=== PATIENT | female | born 1985 | race American Indian/Alaskan Native ===

== ENCOUNTER 2016-06-20 07:26 | Emergency (ER) | payer SELFPAY ==
[2016-06-20 07:40] VITALS: BP 129/84
[2016-06-20] MEDS ORDERED: TORADOL IM ONE (09:17)
--- NOTE | 2016-06-20 09:19 | Emergency Department Report ---
ED Back Pain/Injury HPI - General Chief Complaint: Fall Stated Complaint: FALL/LEFT SIDE HIP/BACK/SHOULDER PAIN Time Seen by Provider: 06/20/16 09:14 Source: patient Limitations: No Limitations - History of Present Illness Initial Comments: 30-year-old female comes in complaint of left hip left shoulder and lower back pain. Patient reports that [place] Monday [place] Now she is having pain and stiffness. Patient reports that she is able to move all of her extremities and was able to come here to the hospital but pain is not subsiding. Patient reports that she's taken ibuprofen 800 mg 2 tablets since this incident happened as well as taking Goody powders. She denies any loss of bladder control no fecal incontinence. Denies hitting her head no nausea no vomiting. LMP 05/25/2016 denies any chances of being . - Related Data Previous Rx's Medication Instructions Recorded Last Taken Type Ibuprofen [Motrin 800 MG tab] 800 mg PO Q8HR PRN #45 tablet 06/20/16 Unknown Rx methOCARBAMOL [Robaxin TAB] 500 mg PO BID #30 tab 06/20/16 Unknown Rx Allergies Allergy/AdvReac Type Severity Reaction Status Date / Time No Known Allergies Allergy Unverified 06/20/16 08:20 ED Review of Systems ROS: Stated complaint: FALL/LEFT SIDE HIP/BACK/SHOULDER PAIN Other details as noted in HPI Constitutional: no symptoms reported Musculoskeletal: back pain, arthralgia (left shoulder left hip) Neurological: denies: headache, weakness, numbness, paresthesias, abnormal gait ED Past Medical Hx - Past Medical History Previous Medical History?: No - Surgical History Past Surgical History?: No - Social History Smoking Status: Current Every Day Smoker Substance Use Type: None - Medications Home Medications: Home Medications Medication Instructions Recorded Confirmed Last Taken Type Ibuprofen [Motrin 800 MG tab] 800 mg PO Q8HR PRN #45 tablet 06/20/16 Unknown Rx methOCARBAMOL [Robaxin TAB] 500 mg PO BID #30 tab 06/20/16 Unknown Rx ED Physical Exam - General Limitations: No Limitations General appearance: alert, in no apparent distress - Head Head exam: Present: atraumatic, normocephalic - Respiratory Respiratory exam: Present: normal lung sounds bilaterally - Expanded Upper Extremity Exam Left General: Present: normal inspection Shoulder Exam: Present: normal inspection, tenderness. Absent: swelling, abrasion, laceration, deformity - Expanded Lower Extremity Exam Left Hip exam: Present: normal inspection, full ROM, tenderness, ecchymosis. Absent : swelling, abrasion, laceration - Back Exam Back exam: Present: tenderness (lower back), muscle spasm (lower back). Absent : CVA tenderness (R), CVA tenderness (L) - Neurological Exam Neurological exam: Present: alert, oriented X3 ED Course Vital Signs 06/20/16 06/20/16 07:34 09:29 Temperature 98.1 F Pulse Rate 68 Respiratory 16 20 Rate Blood Pressure 129/84 O2 Sat by Pulse 100 Oximetry - Reevaluation(s) Reevaluation #1: 06/20/16 10:55 Is was given Toradol injection 60 mg IM. Follow-up with patient she states that she feels much better. We would discharge patient on appropriate medications ED Medical Decision Making - Medical Decision Making She has been evaluated by this provider in fast track. Based on history and physical examination there is no imaging is required at this time. Discussed with patient that we'll give her a Toradol injection to help her with the pain. We would discuss charged patient on a muscle relaxant such as Robaxin and ibuprofen 800 mg 3 times a day. Patient verbalized understanding. She does request for light duty for a few days. Critical care attestation.: If time is entered above; I have spent that time in minutes in the direct care of this critically ill patient, excluding procedure time. ED Disposition Clinical Impression: Back pain Qualifiers: Back pain location: low back pain Chronicity: acute Back pain laterality: left Sciatica presence: unspecified whether sciatica present Qualified Code(s): M54.5 - Low back pain Disposition: DISCHARGED TO HOME OR SELFCARE Is pt being admited?: No Does the pt Need Aspirin: No Condition: Stable Instructions: Fall Prevention (ED), Back Pain (ED), Shoulder Sprain (ED), Arthralgia (ED) Additional Instructions: Take medication as prescribed follow with the primary care provider. If symptoms get worse or does not improve return to the emergency room. Prescriptions: Ibuprofen [Motrin 800 MG tab] 800 mg PO Q8HR PRN #45 tablet PRN Reason: Pain methOCARBAMOL [Robaxin TAB] 500 mg PO BID #30 tab Referrals: PRIMARY CARE, [Primary Care Provider] - 3-5 Days HELGA CAI MD [Staff Physician] - 3-5 Days Forms: Work/School Release Form(ED)
== END 2016-06-20 11:03 | disposition home or self-care (01) ==
LOC: ED 07:26
DX: M54.5 Low back pain (principal); F17.200 Nicotine dependence, unspecified, uncomplicated; W01.0XXA Fall on same level from slipping, tripping and stumbling without subsequent striking against object, initial encounter; Y93.9 Activity, unspecified; Y92.9 Unspecified place or not applicable; Y99.9 Unspecified external cause status
CPT/HCPCS: 96372; 99282; J1885

== ENCOUNTER 2016-12-01 10:10 | Emergency (ER) | payer SELFPAY ==
[2016-12-01 11:42] LABS: Basophils % (Auto) 0.3 % (0.0-1.8); Eosinophils % (Auto) 1.8 % (0.0-4.3); Hematocrit 36.4 % (30.3-42.9); Hemoglobin 12.3 gm/dl (10.1-14.3); Mean Corpuscular HGB Conc 34 % (30-34); Mean Corpuscular Hemoglobin 33 pg (28-32); Mean Corpuscular Volume 99 fl (79-97); Platelet Count 251 K/mm3 (140-440); Red Blood Count 3.68 M/mm3 (3.65-5.03); Red Cell Distribution Width 11.8 % (13.2-15.2); White Blood Count 6.2 K/mm3 (4.5-11.0)
[2016-12-01 11:43] LABS: Bacteria,Urine 1+ /HPF (Negative); Bilirubin,Urine NEG (Negative); Blood,Urine LG (Negative); Ketones,Urine NEG (Negative); Leukocyte Esterase,Urine TR (Negative); Mucus,Urine FEW /HPF; Nitrite,Urine NEG (Negative); Protein,Urine <15 mg/dL mg/dL (Negative)
--- NOTE | 2016-12-01 22:34 | Emergency Department Report ---
HPI - General Chief Complaint: Vaginal Bleeding Time Seen by Provider: 12/01/16 21:40 - HPI HPI: Room 7 The patient is a 31-year-old female presenting with a chief complaint of vaginal bleeding the patient states her last cycle her 10/27-. The patient states for the past 5 days she has had intermittent suprapubic and left lower quadrant cramping. The patient states 4 days ago she developed vaginal spotting for several hours and then resolved. The patient states yesterday the bleeding return of dark blood. The patient states she took a test yesterday and today and they were both positive. The patient states she currently feels fine gives her pain a score of 2/10 Location: Suprapubic, left lower quadrant Duration: Intermittent 5 days Quality: Cramping Severity: 2/10 Modifying factors: [see above] Context: [see above] Mode of transportation: [not driving] ED Past Medical Hx - Past Medical History Previous Medical History?: No - Surgical History Past Surgical History?: No - Family History Family history: no significant - Social History Smoking Status: Current Every Day Smoker (1/2 pack per day) Substance Use Type: None - Medications Home Medications: Home Medications Medication Instructions Recorded Confirmed Last Taken Type No Known Home Medications [No 12/01/16 12/01/16 Unknown History Reported Home Medications] ED Review of Systems ROS: Stated complaint: PREG/ABD PAIN/BLEEDING Other details as noted in HPI Comment: All other systems reviewed and negative Constitutional: denies: chills, fever Eyes: denies: eye pain, eye discharge, vision change ENT: denies: ear pain, throat pain Respiratory: denies: cough, shortness of breath, wheezing Cardiovascular: as per HPI Endocrine: no symptoms reported Gastrointestinal: abdominal pain Genitourinary: abnormal menses Musculoskeletal: denies: back pain, joint swelling, arthralgia Skin: denies: rash, lesions Neurological: denies: headache, weakness, paresthesias Psychiatric: denies: anxiety, depression Hematological/Lymphatic: denies: easy bleeding, easy bruising Physical Exam - Physical Exam Vital Signs: Vital Signs 12/01/16 10:35 Temperature 98.4 F Pulse Rate 69 Respiratory 18 Rate Blood Pressure 116/78 O2 Sat by Pulse 100 Oximetry Physical Exam: GENERAL: The patient is well-developed well-nourished female sitting on stretcher not appearing to be in acute distress. [] HEENT: Normocephalic. Atraumatic. Extraocular motions are intact. Patient has moist mucous membranes. NECK: Supple. Trachea midline CHEST/LUNGS: Clear to auscultation. There is no respiratory distress noted. HEART/CARDIOVASCULAR: Regular. There is no tachycardia. There is no gallop rub or murmur. ABDOMEN: Abdomen is soft, with discomfort to palpation in the suprapubic and left lower quadrant. Patient has normal bowel sounds. There is no abdominal distention. SKIN: There is no rash. There is no edema. There is no diaphoresis. NEURO: The patient is awake, alert, and oriented. The patient is cooperative. The patient has normal speech MUSCULOSKELETAL: There is no evidence of acute injury. ED Course Vital Signs 12/01/16 10:35 Temperature 98.4 F Pulse Rate 69 Respiratory 18 Rate Blood Pressure 116/78 O2 Sat by Pulse 100 Oximetry ED Medical Decision Making - Lab Data Result diagrams: 12/01/16 10:56 Laboratory Tests 12/01/16 12/01/16 12/01/16 10:35 10:56 10:56 WBC 6.2 RBC 3.68 Hgb 12.3 Hct 36.4 MCV 99 H MCH 33 H MCHC 34 RDW 11.8 L Plt Count 251 Lymph % (Auto) 31.5 [place] % (Auto) 8.9 H Eos % (Auto) 1.8 Baso % (Auto) 0.3 Lymph # 1.9 [place] # 0.6 Eos # 0.1 Baso # 0.0 Seg Neutrophils % 57.5 Seg Neutrophils # 3.5 Total Creatine Kinase 69 HCG, Quant 127.1 H Urine Color Urine Turbidity Urine pH Ur Specific [place] Urine Protein Urine Glucose (UA) Urine Ketones Urine Blood Urine Nitrite Urine Bilirubin Urine Urobilinogen Ur Leukocyte Esterase Urine WBC (Auto) Urine RBC (Auto) U Epithel Cells (Auto) Urine Bacteria (Auto) Urine Mucus Blood Type Antibody Screen TEZ Antibody Screen 12/01/16 12/01/16 10:59 11:11 WBC RBC Hgb Hct MCV MCH MCHC RDW Plt Count Lymph % (Auto) [place] % (Auto) Eos % (Auto) Baso % (Auto) Lymph # [place] # Eos # Baso # Seg Neutrophils % Seg Neutrophils # Total Creatine Kinase HCG, Quant Urine Color Yellow Urine Turbidity Clear Urine pH 6.0 Ur Specific [place] 1.019 Urine Protein <15 mg/dl Urine Glucose (UA) Neg Urine Ketones Neg Urine Blood Lg Urine Nitrite Neg Urine Bilirubin Neg Urine Urobilinogen 2.0 Ur Leukocyte Esterase Tr Urine WBC (Auto) 6.0 Urine RBC (Auto) 5.0 U Epithel Cells (Auto) 3.0 Urine Bacteria (Auto) 1+ Urine Mucus Few Blood Type O POSITIVE Antibody Screen TNR TEZ Antibody Screen Negative - Radiology Data Radiology results: report reviewed (pelvic ultrasound), image reviewed (pelvic ultrasound) Pelvic ultrasound (read by radiologist)-unremarkable exam - Medical Decision Making I discussed with patient and friend/family at bedside my concern for ectopic and that it is not ruled out in this instance. I explained to the patient needs to return to the hospital 48 hours to have her serum hCG level rechecked and potentially a repeat pelvic ultrasound. Patient verbalized understanding. - Differential Diagnosis ectopic , spontaneous , threatened Critical care attestation.: If time is entered above; I have spent that time in minutes in the direct care of this critically ill patient, excluding procedure time. ED Disposition Clinical Impression: Threatened Disposition: DC-01 TO HOME OR SELFCARE Is pt being admited?: No Does the pt Need Aspirin: No Condition: Stable Instructions: Ectopic (ED), Threatened Miscarriage (ED) Additional Instructions: Your serum hCG level today is 127.1 mIu/mL. You should return to the emergency department in 48 hours to have this number rechecked. Return to the emergency department immediately should you develop worsening symptoms, fever, inability to tolerate food or liquid or any other concerns. Referrals: CHINMAY FLORIAN MD [Staff Physician] - 12/03/16 (Dr. Florian is an [employer]. Please follow up with him for further evaluation) Time of Disposition: 23:03
--- NOTE | 2016-12-01 22:45 | Ultrasound Report ---
FINAL REPORT PROCEDURE: US OB TRANSVAGINAL TECHNIQUE: Real-time transvaginal sonography in multiple planes of the pelvis was performed with image documentation. This examination was performed without Doppler. Vascular abnormalities, including ovarian torsion, will not be detectable without Doppler evaluation. CPT 33802 HISTORY: preg, vag bleed COMPARISON: No prior studies are available for comparison. FINDINGS: UTERUS Size: 8.4 x 3.9 x 5.2 cm. Endometrial thickness: 10 mm. Orientation: anteverted. Cervix: Normal. Fibroids/masses: None. RIGHT Ovary: 3.5 x 2.5 x 1.9 cm. Appearance: Normal. LEFT Ovary: 2.8 x 2.0 x 1.6 cm. Appearance: Normal. Pelvic fluid: None. Other: None. IMPRESSION: Unremarkable study.
--- NOTE | 2016-12-01 22:50 | Ultrasound Report ---
FINAL REPORT PROCEDURE: US OB \T\lt; = 14 WEEKS FETUS TECHNIQUE: Real-time transabdominal sonography in multiple planes of pelvis was performed with image documentation. This examination was performed without Doppler. Vascular abnormalities, including ovarian torsion, will not be detectable without Doppler evaluation. CPT 07258 HISTORY: preg, vag bleed COMPARISON: No prior studies are available for comparison. FINDINGS: UTERUS Size: 8.4 x 3.9 x 5.2 cm. Endometrial thickness: 10 mm. Orientation: anteverted. Cervix: Normal. Fibroids/masses: None. RIGHT Ovary: 3.5 x 2.5 x 1.9 cm. Appearance: Normal. LEFT Ovary: 2.8 x 2.0 x 1.6 cm. Appearance: Normal. Pelvic fluid: None. Other: None. IMPRESSION: Unremarkable study
[2016-12-01 23:33] VITALS: BP 129/79
== END 2016-12-01 23:33 | disposition home or self-care (01) ==
LOC: ED 10:10
DX: O20.0 Threatened abortion (principal); F17.200 Nicotine dependence, unspecified, uncomplicated
CPT/HCPCS: 36415; 76801; 76817; 81001; 82550; 84702; 85025; 86850; 86900; 86901

== ENCOUNTER 2016-12-04 11:29 | Emergency (ER) | payer SELFPAY ==
[2016-12-04 11:41] VITALS: BP 128/92
--- NOTE | 2016-12-04 14:33 | Emergency Department Report ---
ED General Adult HPI - General Chief complaint: Urogenital-Female Stated complaint: FOLLOW UP CARE Time Seen by Provider: 12/04/16 14:16 Source: patient, RN notes reviewed, old records reviewed (blood type RH + ) Mode of arrival: Ambulatory Limitations: No Limitations - History of Present Illness Initial comments: PT states she is here for repeat lab work. PT states on 11-29-16 she had an irregular period. PT states it compelled her to be seen in the ED on 12-01-16. PT states she was found to have positive blood test and she was told to return today for repeat labs. PT states she is still having vaginal bleeding, states it is like a normal period. 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 PT states 10 years ago, she was told that she has a thin uterus and she would have trouble getting again. PT denies pain. MD Complaint: follow up -: Gradual, week(s) (less than one week ) Severity scale (0 -10): 0 Consistency: constant Improves with: none Worsens with: none Associated Symptoms: denies other symptoms. denies: fever/chills, nausea/ vomiting, shortness of breath - Related Data Home Medications Medication Instructions Recorded Confirmed Last Taken No Known Home Medications [No 12/01/16 12/01/16 Unknown Reported Home Medications] Allergies Allergy/AdvReac Type Severity Reaction Status Date / Time No Known Allergies Allergy Verified 12/01/16 10:35 ED Review of Systems ROS: Stated complaint: FOLLOW UP CARE Other details as noted in HPI Comment: All other systems reviewed and negative Constitutional: denies: chills, fever Respiratory: denies: shortness of breath Cardiovascular: denies: syncope Gastrointestinal: denies: abdominal pain, nausea, vomiting Genitourinary: abnormal menses Neurological: denies: weakness ED Past Medical Hx - Past Medical History Previous Medical History?: No - Surgical History Past Surgical History?: Yes Additional Surgical History: difficulty with , I and D - Social History Smoking Status: Current Every Day Smoker Substance Use Type: None - Medications Home Medications: Home Medications Medication Instructions Recorded Confirmed Last Taken Type No Known Home Medications [No 12/01/16 12/01/16 Unknown History Reported Home Medications] ED Physical Exam - General Limitations: No Limitations General appearance: alert, in no apparent distress, other (pt sitting up, eating , no acute distress noted ) - Head Head exam: Present: atraumatic, normocephalic, normal inspection - Eye Eye exam: Present: normal appearance. Absent: conjunctival injection - ENT ENT exam: Present: normal exam, normal external ear exam - Neck Neck exam: Present: normal inspection, full ROM - Respiratory Respiratory exam: Present: normal lung sounds bilaterally. Absent: respiratory distress, chest wall tenderness - Cardiovascular Cardiovascular Exam: Present: regular rate, normal rhythm - GI/Abdominal GI/Abdominal exam: Present: soft. Absent: distended, tenderness, guarding, rebound - Extremities Exam Extremities exam: Present: normal inspection, full ROM - Back Exam Back exam: Present: normal inspection, full ROM. Absent: tenderness, CVA tenderness (R), CVA tenderness (L), muscle spasm - Neurological Exam Neurological exam: Present: alert, oriented X3 - Psychiatric Psychiatric exam: Present: normal affect, normal mood - Skin Skin exam: Present: warm, dry, intact, normal color, other (with tattoos ) ED Course Vital Signs 12/04/16 11:35 Temperature 98.5 F Pulse Rate 74 Respiratory 74 H Rate Blood Pressure 128/92 O2 Sat by Pulse 100 Oximetry - Reevaluation(s) Reevaluation #1: 12/04/16 14:36 PT aware of decrease in bhcg. PT aware that this is likely not a viable . PT aware that she will need to follow up with [facility]. PT has no questions at this time. - Pulse Oximetry Interpretation Digit-Finger Initial Pulse Oximetry Readin Actions Taken: none ED Medical Decision Making - Lab Data Laboratory Last Values HCG, Quant 56.59 mIU/mL (0-4) H 12/04/16 11:45 - Differential Diagnosis threatened , miscarriage Critical Care Time: No Critical care attestation.: If time is entered above; I have spent that time in minutes in the direct care of this critically ill patient, excluding procedure time. ED Disposition Clinical Impression: Threatened Disposition: DC-01 TO HOME OR SELFCARE Is pt being admited?: No Does the pt Need Aspirin: No Condition: Stable Instructions: Spontaneous Miscarriage (ED) Additional Instructions: Your hormone level dropped from 127.1 to 56.59 You will need to follow up with [facility] Referrals: PRIMARY CARE, [Primary Care Provider] - 3-5 Days EDGAR HENDERSON MD [Staff Physician] - 3-5 Days Time of Disposition: 14:41
== END 2016-12-04 14:48 | disposition home or self-care (01) ==
LOC: ED 11:29
DX: O20.0 Threatened abortion (principal); F17.210 Nicotine dependence, cigarettes, uncomplicated; Z3A.00 Weeks of gestation of pregnancy not specified
CPT/HCPCS: 36415; 84702; 99283